=== PATIENT | male | born 1995 | race Caucasian/White ===

== ENCOUNTER 2017-05-15 13:37 | Emergency (ER) | payer BC ==
[~2017-05-15] VITALS: Ht 195.6 cm; Wt 93.7 kg
[2017-05-15 13:43] VITALS: TEMP 37.4; Ht 195.6 cm; Wt 93.7 kg
[2017-05-15] MEDS ORDERED: BCTCR/30 EXT (14:08)
[2017-05-15] MEDS ORDERED: SULF800T23 PO (14:08)
[2017-05-15] MEDS ORDERED: CEFTRIAXONE SOD INJ 1 GM ADDVIAL IV STA (14:17)
[2017-05-15] MEDS ORDERED: LIDOCAINE/EPINEPH/TETRACAINE 1 EA SYR EXT STA (14:17)
[2017-05-15 14:45] LABS: BASO % 0.1 %; BASO ABS # 0.01 K/uL (0-0.2); COMPLETE YES; HEMATOCRIT 48.3 % (42-52); IG% 0.4 %; LYMPH % 14.6 %; LYMPH ABS # 1.15 K/uL (1.2-3.4); MEAN CELL VOLUME 85.5 fL (80-100); MEAN PLATELET VOLUME 9.1 fL (7.4-10.4); MONO % 11.9 %; PLATELET COUNT 278 K/uL (130-400); RED BLOOD COUNT 5.65 M/uL (4.7-6.1); WHITE BLOOD COUNT 7.88 K/uL (4.8-10.8)
[2017-05-15 14:56] LABS: BUN/CREATININE RATIO 8.5 (10-20); CALCIUM 9.3 mg/dl (8.5-10.1); CREATININE 1.2 mg/dl (0.60-1.40); POTASSIUM 3.9 mmol/L (3.5-5.1)
[2017-05-15 14:59] LABS: C-REACTIVE PROTEIN 2.48 mg/dl (0-0.29)
--- NOTE | 2017-05-15 15:26 | EMERGENCY ROOM VISIT NOTE ---
History Report prepared by Donny: Dinorah Borrego Under the Supervision of: Dr. Onel Sawyer D.O. First contact with patient: 14:01 Chief Complaint: INFECTION Stated Complaint: RIGHT KNEE INFECTION Nursing Triage Summary: triage note: Pt reports he has had reddned area to his posterior right knee since . pt reports he was seen at [facility] and started on antibiotics tuesday. pt reports "i think its a little beter." History of Present Illness The patient is a 21 year old male who presents to the Emergency Room with complaints of an episode of an infection starting three days ago. The patient states that the back of his right knee is swollen, stiff, and red. The patient reports that he went to [facility] who put him on Bactrim. He states that the pain is worse with movement. He reports that he cannot extend it. He states that the swelling has moved down to his calf. He reports that he has been putting triple antibiotic on it with no relief. The patient denies fevers, chills, nausea, vomiting, abdominal pain, back pain, puss coming out of it, and being outside a lot. He notes that [facility] did no testing. Source of History: patient Onset: three days ago Position: knee (right) Quality: other (swollen) Timing: other (episode) Modifying Factors (Worsening): movement Associated Symptoms: No fevers, No chills, No nausea, No vomiting, No abdominal pain, No back pain Note: The patient denies puss coming from the site and being outside often. Review of Systems See HPI for pertinent positives & negatives. A total of 10 systems reviewed and were otherwise negative. Past Medical & Surgical Surgical Problems: (1) H/O wisdom tooth extraction Family History Cancer Hypertension Social History Smoking Status: Never Smoker Alcohol Use: occasionally Marital Status: single Housing Status: lives with roommate Occupation Status: [employer] student Current/Historical Medications Scheduled Doxycycline (Monohydrate) (Doxycycline Monohydrate), 100 MG PO BID Mupirocin 2% (Bactroban 2%), 1 APPLN EXT TID Sulfamethoxazole-Trimethoprim (Bactrim Ds 800MG/160MG), 1 TAB PO BID Allergies Coded Allergies: No Known Allergies (Unverified , 05/15/17) Physical Exam Vital Signs Date Time Temp Pulse Resp B/P (MAP) Pulse Ox O2 Delivery O2 Flow Rate FiO2 05/15/17 16:21 84 18 129/70 98 05/15/17 13:43 37.4 88 18 131/72 97 Room Air Physical Exam GENERAL: Patient is awake, alert, and in no acute distress. Patient is resting comfortably and showing no signs of anxiety EYES: The conjunctivae are clear. The pupils are round and reactive. EARS, NOSE, MOUTH AND THROAT: The nose is without any evidence of any deformity. Mucous membranes are moist tongue is midline NECK: The neck is nontender and supple. RESPIRATORY: Normal respiratory effort is noted there is no evidence of wheezing rhonchi or rales CARDIOVASCULAR: Regular rate and rhythm noted there no murmurs rubs or gallops normal S1 normal S2 GASTROINTESTINAL: The abdomen is soft. Bowel sounds are present in all quadrants. Abdomen is nontender MUSCULOSKELETAL/EXTREMITIES: There is no evidence of gross deformity full range of motion is noted in the hips and shoulders SKIN: Erythema and eburnation behind the right knee. No fluctuance appreciated. Central pustula, but no drainage was appreciated. NEUROLOGIC: Patient is awake alert and oriented x3. Medical Decision & Procedures Laboratory Results 05/15/17 14:25 Red Blood Count 5.65, Mean Corpuscular Volume 85.5, Mean Corpuscular Hemoglobin 29.0, Mean Corpuscular Hemoglobin Concent 34.0, Mean Platelet Volume 9.1, Neutrophils (%) (Auto) 70.0, Lymphocytes (%) (Auto) 14.6, Monocytes (%) (Auto) 11.9, Eosinophils (%) (Auto) 3.0, Basophils (%) (Auto) 0.1, Neutrophils # (Auto ) 5.51, Lymphocytes # (Auto) 1.15, Monocytes # (Auto) 0.94, Eosinophils # (Auto ) 0.24, Basophils # (Auto) 0.01 05/15/17 14:25 Test 05/15/17 14:25 White Blood Count 7.88 K/uL (4.8-10.8) Red Blood Count 5.65 M/uL (4.7-6.1) Hemoglobin 16.4 g/dL (14.0-18.0) Hematocrit 48.3 % (42-52) Mean Corpuscular Volume 85.5 fL (80-100) Mean Corpuscular Hemoglobin 29.0 pg (25-34) Mean Corpuscular Hemoglobin Concent 34.0 g/dl (32-36) Platelet Count 278 K/uL (130-400) Mean Platelet Volume 9.1 fL (7.4-10.4) Neutrophils (%) (Auto) 70.0 % Lymphocytes (%) (Auto) 14.6 % Monocytes (%) (Auto) 11.9 % Eosinophils (%) (Auto) 3.0 % Basophils (%) (Auto) 0.1 % Neutrophils # (Auto) 5.51 K/uL (1.4-6.5) Lymphocytes # (Auto) 1.15 K/uL (1.2-3.4) Monocytes # (Auto) 0.94 K/uL (0.11-0.59) Eosinophils # (Auto) 0.24 K/uL (0-0.5) Basophils # (Auto) 0.01 K/uL (0-0.2) RDW Standard Deviation 40.1 fL (36.4-46.3) RDW Coefficient of Variation 12.7 % (11.5-14.5) Immature Granulocyte % (Auto) 0.4 % Immature Granulocyte # (Auto) 0.03 K/uL (0.00-0.02) Erythrocyte Sedimentation Rate 7 mm/hr (0-14) Anion Gap 6.0 mmol/L (3-11) Est Creatinine Clear Calc Drug Dose 122.7 ml/min Estimated GFR () 99.6 Estimated GFR (Non- 85.9 BUN/Creatinine Ratio 8.5 (10-20) Calcium Level 9.3 mg/dl (8.5-10.1) Total Bilirubin 0.6 mg/dl (0.2-1) Direct Bilirubin 0.1 mg/dl (0-0.2) Aspartate Amino Transf (AST/SGOT) 12 U/L (15-37) Alanine Aminotransferase (ALT/SGPT) 25 U/L (12-78) Alkaline Phosphatase 80 U/L (45-117) C-Reactive Protein 2.48 mg/dl (0-0.29) Total Protein 7.9 gm/dl (6.4-8.2) Albumin 4.5 gm/dl (3.4-5.0) Lyme Disease IgG Antibody NEG (NEG) Lyme Disease IgM Antibody NEG (NEG) Laboratory results per my review. Medications Administered Medications (Trade) Dose Ordered Sig/Dany Route Start Time Stop Time Status Last Admin Dose Admin Ceftriaxone Sodium (Rocephin Inj) 1 gm NOW STAT IV 05/15/17 14:17 05/15/17 14:18 DC 05/15/17 14:39 1 GM Tetracaine/ Epinephrine/ Lidocaine (L.e.t. Gel 4%/ 1:100/0.5%) 1 ea NOW STAT EXT 05/15/17 14:17 05/15/17 14:18 DC 05/15/17 14:39 1 EA ED Course 1413: The patient was evaluated in room B9. A complete history and physical examination were performed. 141: Ordered Tetracaine/ Epinephrine/ Lidocaine 1 ea EXT, Rocephin Inj 1 gm IV. 162: Upon reevaluation, the patient is resting comfortably. I discussed the results and treatment plan with him. He verbalized agreement of the treatment plan. The patient was discharged home. Medical Decision Etiologies such as cellulitis, abscess, MRSA infection, DVT, necrotizing fasciitis, dermatitis, drug eruption, as well as others were entertained. Nursing notes reviewed. The patient is a 21-year-old male who presented to the emergency department for erythema and swelling behind his right knee. The patient was seen at [facility] recently and started on Bactroban ointment as well as Bactrim. Because the area involved was in the popliteal region and I feel this could be consistent with Lyme disease. Because of this he was started on a course of doxycycline and was treated with IV Rocephin. The area was swollen and had some fluctuance to it. I numbed the area with let gel and attempted to I and D using an 11 blade. There is only a very small amount of purulent material noted and some bleeding. At this time I feel this could be consistent with a cellulitis or possibly Lyme disease even though his Lyme titer at this time is negative. I added doxycycline to his regimen and encouraged him to continue taking the Bactrim. He was encouraged to keep this elevated as much as possible and follow- up with [facility] this week. He was also encouraged to continue to use Motrin and Tylenol for pain but return to the emergency department immediately if symptoms change worsen or the need arises. Impression Primary Impression: Cellulitis of right lower extremity Scribe Attestation The scribe's documentation has been prepared under my direction and personally reviewed by me in its entirety. I confirm that the note above accurately reflects all work, treatment, procedures, and medical decision making performed by me. Departure Information Dispostion Home / Self-Care Prescriptions Doxycycline (Monohydrate) (DOXYCYCLINE MONOHYDRATE) 100 Mg Tab 100 MG PO BID, #28 TABS Prov: Onel Sawyer, DO 05/15/17 Referrals No Doctor, Assigned (PCP) Forms HOME CARE DOCUMENTATION FORM, IMPORTANT VISIT INFORMATION, WORK / SCHOOL INSTRUCTIONS Patient Instructions My [facility] Additional Instructions Follow-up with [facility] for recheck this week. I would recommend a repeat Lyme titer done in 2 weeks. Continue all medications as prescribed and start doing the new antibiotic tomorrow. Continue using Motrin and Tylenol for pain.
[2017-05-15 15:35] LABS: LYME DISEASE AB IGG NEG (NEG); LYME DISEASE AB IGM NEG (NEG)
[2017-05-15] MEDS ORDERED: DOXY100T17 PO (16:06)
[2017-05-15 16:21] VITALS: BP 129/70; PULSE 84; O2SAT 98
--- NOTE | 2017-05-17 13:49 | Pharmacy Progress Note ---
ED Pharmacist Culture FollowUp Date of Service: May 17, 2017. Patient was sent home with a prescription for Doxycycline 100mg BID X 14 days ( also already on bactrim), which should cover the MSSA growing from the patient' s surface wound culture culture.
== END 2017-05-15 16:22 | disposition home or self-care (01) ==
LOC: C.EDB 13:39
DX: L03.115 Cellulitis of right lower limb (principal); M25.561 Pain in right knee